=== PATIENT | female | born 1960 ===

== ENCOUNTER 2022-12-26 16:40 | Emergency (ER) | payer MEDICARE, SELFPAY ==
[2022-12-26 16:46] VITALS: BP 179/87; PULSE 86; RESP 16; TEMP 37.1; O2SAT 98; BMI 29.2
--- NOTE | 2022-12-26 17:01 | DI.RAD.S_ITS ---
PROCEDURE: XR FOOT RT MIN 3V INDICATIONS: fall, LAC posterior 5th digit, swelling anterior foot TECHNIQUE: 3 views of the foot were acquired. COMPARISON: None. FINDINGS: Bones: No fractures or dislocations. No suspicious bony lesions. Dorsal beaking of the tarsal metatarsal joints. Mild osteoarthritic changes of the 1st metatarsophalangeal joint. Accessory os peroneus. Soft tissues: No tibiotalar joint effusion. Achilles tendon appears normal. Soft tissue swelling over the forefoot. IMPRESSION: No displaced fracture identified. Multifocal osteoarthritic changes. No retained radiopaque foreign bodies. Dictated by: Blayne Hi M.D. on 12/26/2022 at 16:26 Approved by: Blayne Hi M.D. on 12/26/2022 at 16:29
--- NOTE | 2022-12-26 18:11 | ED.FALL ---
HPI - Fall General Chief Complaint: Fall Stated Complaint: Fall Time Seen by Provider: 12/26/22 18:05 History of Present Illness HPI Narrative: 62-year-old female occasional smoker presents with family in the chief complaint of an accidental injury to her right foot. She states that she was walking in the middle of the night and accidentally slammed her foot and suffered an injury. She had presented initially to the walk-in clinic and was referred here due to the possibility of an open fracture given the obvious laceration between her right 4th and 5th toes. She reports her tetanus is up-to-date. She does not have much in the way of pain due to a known neuropathy. Related Data Home Medications Medication Instructions Recorded Confirmed allopurinol 300 mg tablet 300 mg PO DAILY 12/26/22 12/26/22 ferrous gluconate 324 mg (37.5 mg 324 mg PO DAILY 12/26/22 12/26/22 iron) tablet furosemide 40 mg tablet 40 mg PO DAILY 12/26/22 12/26/22 gabapentin 600 mg tablet 600 mg PO DAILY 12/26/22 12/26/22 levothyroxine 175 mcg tablet 175 mcg PO DAILY 12/26/22 12/26/22 (Levo-T) propranolol 20 mg tablet 10 mg PO BID 12/26/22 12/26/22 thiamine HCl (vitamin B1) 100 mg 100 mg PO DAILY 12/26/22 12/26/22 tablet (Vitamin B-1) Previous Rx's Medication Instructions Recorded cephalexin 500 mg capsule 500 mg PO Q6H 7 days #28 caps 12/26/22 Allergies Allergy/AdvReac Type Severity Reaction Status Date / Time No Known Drug Allergies Allergy Unverified 12/26/22 16:08 Review of Systems Review of Systems Narrative: GENERAL: Denies chills, fatigue, malaise, fever, sweats. HEENT: Denies sinus pain, ear pain, sore throat, difficulty swallowing, dizziness. RESPIRATORY: Denies dyspnea, cough, wheezing, hemoptysis, sputum. CARDIOVASCULAR: Denies chest pain, palpitations, orthopnea, edema, GASTROINTESTINAL: Denies nausea, vomiting, abdominal pain, diarrhea, constipation, melena. : Denies dysuria, frequency, incontinence, hematuria, urinary retention. MUSCULOSKELETAL: See HPI SKIN: Denies rash, skin lesions, or other NEUROLOGIC: Denies weakness, headache, numbness, change in speech, confusion, seizures, incoordination. PSYCHIATRIC: No concerning psychosocial issues. 12 point review of systems is negative except for those stated above Patient History Social History Smoking Status: Current some day smoker Smoking Status: Current some day smoker Exam Narrative Exam Narrative: GEN: AOx3 and in mild distress EYES: Pupils are equal, round, and reactive to light and accommodation. Extraoccular muscles are intact bilaterally. There is no subconjunctival hemorrhage or exudate. CHEST: Lungs are clear to auscultation bilaterally and free of wheezes, rales, or rhonchi. Heart rate is regular rhythm, there are no murmurs, clicks, rubs, or gallops. There is no chest wall tenderness. ABD: Abdomen is soft and nontender. There is no guarding or rebound. Bowel sounds are normal in all 4 quadrants. There is no mass or organomegaly. EXT: 4 cm laceration on the underside right 5th toe wrapping underneath plantar surface and into the 4th and 5th toe webspace, no evidence of foreign body, no bony abnormality and no tendinous involvement SKIN: Warm, pink, and dry. No erythema or rash Initial Vital Signs Initial Vital Signs: Vital Signs Temperature 98.7 F 12/26/22 16:46 Pulse Rate 86 12/26/22 16:46 Respiratory Rate 16 12/26/22 16:46 Blood Pressure 179/87 H 12/26/22 16:46 Pulse Oximetry 98 12/26/22 16:46 Oxygen Delivery Method Room Air 12/26/22 16:46 Procedures Laceration Repair Laceration 1: Site: lower extremity Side (If applicable): right Size (cm): 4 Description: irregular Depth: simple, single layer Local Anesthetic: lidocaine 2% Amount of anesthesia used (mL): 4 Pre-repair: wound explored, irrigated extensively and cleansed with chlorhexadine Skin layer closed with: nylon Skin layer suture size: 5-0 Number of sutures: 6 Technique: simple, interrupted Course Orders Ordered: Discontinued Medications Lidocaine HCl (Lidocaine 2% Inj Sdv 5ml) 5 ml TOP NOW ONE Stop: 12/26/22 19:56 Last Admin: 12/26/22 20:05 Dose: Not Given Documented By: SPF Lidocaine HCl (Lidocaine 2% Inj Sdv 5ml) 5 ml INJ INTRA-OP ONE Stop: 12/26/22 19:58 Last Admin: 12/26/22 20:05 Dose: 5 ml Documented By: ANDRÉS Vital Signs Vital signs: Vital Signs - 8 hr 12/26/22 16:46 Temperature 98.7 F Pulse Rate 86 Respiratory Rate 16 Blood Pressure 179/87 H Pulse Oximetry 98 Oxygen Delivery Method Room Air MDM - Fall MDM Narrative Medical decision making narrative: 62[] year old patient presents with right foot injury Multiple etiologies for patient's symptoms considered including, but not limited to: [Laceration versus fracture versus other] Prior Charts reviewed in our EMR Primary Historian: patient Imaging reviewed: No fracture or dislocation noted on foot x-ray Patient's symptoms improved over duration of stay with above-stated therapies. Wound cleaned, sterilized, suture, no evidence of bony involvement, no foreign body, no evidence of tendon involvement. Tetanus is up-to-date. Patient put on antibiotics, questions answered to her apparent satisfaction Findings and discharge diagnosis discussed with patient/family followed by verbalization of understanding Return precautions discussed with patient/family whom verbalize understanding of diagnosis and plan Discharge Plan Departure Patient Disposition: Home Clinical Impression: Laceration of foot Instructions: DI for Laceration Repair Activity Restrictions/Additional Instructions: *You have been diagnosed with [right foot laceration. As we discussed your history and physical exam are reassuring in the x-ray shows no evidence of fracture. 6 stitches placed] *What to do: *Please continue to take your regular medications as directed. [x ] New medication prescriptions sent to your pharmacy: [ [facility]] [ ] New medication written as a paper prescription [ ] No new medications given * Please keep the wound clean and dry to the best of your ability. Please monitor for signs of infection such as redness to the skin or increasing pain. Have the sutures/jarek removed by your doctor in about 7 days. If you are unable to get into your doctor, we would be happy to remove the sutures/ajrek in that same timeframe. *Return to Emergency Department if you should have any new, worsening or concerning symptoms, such as [fever greater than 101 F, shaking chills, worsening pain, persistent vomiting or other bothersome symptoms] Prescriptions: New cephalexin 500 mg capsule 500 mg PO Q6H 7 Days Qty: 28 0RF No Action allopurinol 300 mg tablet 300 mg PO DAILY ferrous gluconate 324 mg (37.5 mg iron) tablet 324 mg PO DAILY furosemide 40 mg tablet 40 mg PO DAILY gabapentin 600 mg tablet 600 mg PO DAILY levothyroxine [Levo-T] 175 mcg tablet 175 mcg PO DAILY propranolol 20 mg tablet 10 mg PO BID thiamine HCl (vitamin B1) [Vitamin B-1] 100 mg tablet 100 mg PO DAILY Referrals: Miscellaneous,Doctor, MD [Primary Care Provider] - Stand Alone Forms: Patient Portal/API
[2022-12-26 19:19] VITALS: BP 141/96; PULSE 94; RESP 17; O2SAT 95
[2022-12-26 19:59] VITALS: BP 179/95; PULSE 90; RESP 18; O2SAT 97
--- NOTE | 2022-12-26 20:02 | PC.NURSE ---
Patient tolerated procedure well while laying prone in bed. Foot is wrapped with gauze and gauz sleeve wrap.
[2022-12-26] MEDS: LIDOCAINE 2% INJ SDV 5ML 5 ML INJ (20:05)
== END 2022-12-26 20:06 | disposition home or self-care (01) ==
PROVIDERS: Emergency Provider Emergency Medicine
DX: S91.114A Laceration without foreign body of right lesser toe(s) without damage to nail, initial encounter (principal); W22.8XXA Striking against or struck by other objects, initial encounter
CPT/HCPCS: 12002; 73630; 99283

== ENCOUNTER 2022-12-30 15:50 | Emergency (ER) | payer MEDICARE, SELFPAY ==
[2022-12-30 15:53] VITALS: BP 134/88; PULSE 84; RESP 18; TEMP 36.7; O2SAT 97; BMI 29.2
--- NOTE | 2022-12-30 17:36 | DI.RAD.S_ITS ---
PROCEDURE: XR TOE RT MIN 2V INDICATIONS: 5th toe injury TECHNIQUE: 3 views of the 5th toe(s) acquired. COMPARISON: None. FINDINGS: Bones: Mildly displaced, extra-articular fracture of the proximal 5th phalanx metadiaphysis. Soft tissues: No suspicious soft tissue densities. IMPRESSION: Mildly displaced, extra-articular fracture of the 5th proximal phalanx. Dictated by: Jignesh Devlin M.D. on 12/30/2022 at 18:14 Approved by: Jignesh Devlin M.D. on 12/30/2022 at 18:15
--- NOTE | 2022-12-30 18:34 | ED_ITS ---
HPI - Wound/Laceration <AMADOR Scott - Last Filed: 12/30/22 19:04> General Chief Complaint: Wound/Laceration Stated Complaint: Cyst on foot Time Seen by Provider: 12/30/22 17:36 Source: patient Mode of arrival: Wheelchair History of Present Illness HPI narrative: This is a 62-year-old female who returns to the emergency department after she was seen after stubbing her toe on 12/26/2022, and complains of a very large blister to the top of her foot. She states that her pain is still there to her 5th toe and has not gotten any better, she complains of swelling to her foot, denies ankle pain, denies any swelling over lower leg but states that her foot is very swollen is painful to walk. Patient denies history of diabetes, denies history of MRSA. States that she was prescribed cephalexin and has been taking it this week. She states she has a history of kidney disease. Related Data Home Medications Medication Instructions Recorded Confirmed allopurinol 300 mg tablet 300 mg PO DAILY 12/26/22 12/26/22 ferrous gluconate 324 mg (37.5 mg 324 mg PO DAILY 12/26/22 12/26/22 iron) tablet furosemide 40 mg tablet 40 mg PO DAILY 12/26/22 12/26/22 gabapentin 600 mg tablet 600 mg PO DAILY 12/26/22 12/26/22 levothyroxine 175 mcg tablet 175 mcg PO DAILY 12/26/22 12/26/22 (Levo-T) propranolol 20 mg tablet 10 mg PO BID 12/26/22 12/26/22 thiamine HCl (vitamin B1) 100 mg 100 mg PO DAILY 12/26/22 12/26/22 tablet (Vitamin B-1) Previous Rx's Medication Instructions Recorded cephalexin 500 mg capsule 500 mg PO Q6H 7 days #28 caps 12/26/22 diclofenac sodium 1 % topical gel 4 g topical QID #100 grams 12/30/22 hydrocodone 5 mg-acetaminophen 325 1 tab PO Q6H PRN pain #7 tabs 12/30/22 mg tablet Allergies Allergy/AdvReac Type Severity Reaction Status Date / Time No Known Drug Allergies Allergy Verified 12/30/22 15:58 Review of Systems <AMADOR Scott - Last Filed: 12/30/22 19:04> Review of Systems ROS Unobtainable: All systems reviewed & are unremarkable except as noted in HPI and below Patient History <AMADOR Scott - Last Filed: 12/30/22 19:04> Social History Smoking Status: Current every day smoker Smoking Status: Current every day smoker alcohol intake frequency: 0-2 drinks per day Substance Use Type: does not use Exam <AMADOR Scott - Last Filed: 12/30/22 19:04> Narrative Exam Narrative: MSK: Dorsum of right foot has a large bulla 1st blister concerning for fracture blister, x-ray was ordered of the right foot/toe over the 5th toe. Patient has pitting edema primarily in forefoot and midfoot, a mild amount the heel was and no ascending edema or calf tenderness to palpation. No surrounding erythema, blister was drained with a 20 gauge needle for 20 mL of clear yellow fluid. Wound base was not erythematous, Xeroform was applied and patient was placed in an orthopedic shoe. Fifth toe has a brisk cap refill although it is edematous, she has tenderness to palpation over the proximal aspect. There is plantar ecchymosis. Initial Vital Signs Initial Vital Signs: Vital Signs Temperature 98.1 F 12/30/22 15:53 Pulse Rate 84 12/30/22 15:53 Respiratory Rate 18 12/30/22 15:53 Blood Pressure 134/88 12/30/22 15:53 Pulse Oximetry 97 12/30/22 15:53 Oxygen Delivery Method Room Air 12/30/22 15:53 <Al Matos DO - Last Filed: 12/30/22 22:43> Initial Vital Signs Initial Vital Signs: Vital Signs Temperature 98.1 F 12/30/22 15:53 Pulse Rate 84 12/30/22 15:53 Respiratory Rate 18 12/30/22 15:53 Blood Pressure 134/88 12/30/22 15:53 Pulse Oximetry 97 12/30/22 15:53 Oxygen Delivery Method Room Air 12/30/22 15:53 Procedures <AMADOR Scott - Last Filed: 12/30/22 19:04> Orthopedic Splinting/Casting Injury #1: Side: right Lower Extremity Injury Location: foot and toe Lower Extremity Immobilizer: post-op shoe Post splinting neuro exam: intact Post splinting vascular exam: intact Placed by: Nursing Course <AMADOR Scott - Last Filed: 12/30/22 19:04> Orders Ordered: ED Orders 12/30/22 17:36 XR toe RT min 2V Stat Vital Signs Vital signs: Vital Signs - 8 hr 12/30/22 15:53 12/30/22 18:47 Temperature 98.1 F Pulse Rate 84 85 Respiratory Rate 18 16 Blood Pressure 134/88 193/90 H Pulse Oximetry 97 100 Oxygen Delivery Method Room Air Room Air <Al Matos DO - Last Filed: 12/30/22 22:43> Orders Ordered: ED Orders 12/30/22 17:36 XR toe RT min 2V Stat Vital Signs Vital signs: Vital Signs - 8 hr 12/30/22 15:53 12/30/22 18:47 Temperature 98.1 F Pulse Rate 84 85 Respiratory Rate 18 16 Blood Pressure 134/88 193/90 H Pulse Oximetry 97 100 Oxygen Delivery Method Room Air Room Air MDM - Wound/Laceration <AMADOR Scott - Last Filed: 12/30/22 19:04> Imaging Data Extremity x-ray #1: Radiologist's Impression: Close Toe X-Ray (Signed) Jignesh Devlin - 12/30/22 Launch?[place] [address] XRay Report Signed Patient: Padmaja Zuniga MR#: [id number] : 1960 Acct:[id number] Age/Sex: 62 / F Date of Service: 12/30/22 Loc: ED Accession Number: [id number] ?? Procedure: XR toe RT min 2V Ordering Provider: Digna Potter PROCEDURE:? XR TOE RT MIN 2V ? INDICATIONS:? 5th toe injury ? TECHNIQUE:? 3 views of the 5th toe(s) acquired.? ? COMPARISON:? None. ? FINDINGS:? ? Bones:? Mildly displaced, extra-articular fracture of the proximal 5th phalanx metadiaphysis. ? Soft tissues:? No suspicious soft tissue densities.? ? IMPRESSION:? Mildly displaced, extra-articular fracture of the 5th proximal phalanx. ? ? Dictated by: Jignesh Devlin M.D. on 12/30/2022 at 18:14 ? ? Approved by: Jignesh Devlin M.D. on 12/30/2022 at 18:15 ? MDM Narrative Medical decision making narrative: Chief Complaint: Toe pain, blister Multiple etiologies for patient's complaint considered including, but not limited to: Fracture blister, acute fracture, dependent edema, cellulitis, soft tissue necrotizing infection, bullae versus blister I have independently reviewed the patient's vital signs and nursing notes as well as prior records if available. Plan: X-ray, patient denies pain medication, drain bullae, orthopedic shoe, sterile dressing Patient is already taking cephalexin at this time, discussed occult fractures and fracture blisters and in fact, her right toe x-ray today shows a proximal phalanx fracture of the 5th toe, it is visible on the anterior view from 12/26/2022 but not in the oblique view, and today is best seen in the oblique view but is displaced now compared to previously.. Patient was splinted with orthopedic shoe, she tolerated this well, she was given pain medication to use as needed, a Xeroform dressing was applied over fracture blister and I encouraged him to follow-up with [facility] for recheck, start elevating her foot frequently and come back if she has ascending edema, worsening pain, or fever and chills. Patient will follow-up with prolonged Orthopedics. Social considerations that may affect disposition: none Questions are addressed and there is agreement with the plan and for follow-up with [facility] I consulted with the ED attending physician Dr. Matos as needed for higher level of care considerations and they were available for discussion and recommendations regarding plan of care and diagnostic testing. Patient is appropriate for outpatient management. Discharge Plan Departure Patient Disposition: Home Clinical Impression: Blister over site of fracture of bone Fracture, phalanx, foot Qualifiers: Encounter type: initial encounter Toe: lesser toe Fracture type: closed Phalanx: proximal Fracture alignment: displaced Laterality: right Qualified Code(s): S92.511A - Displaced fracture of proximal phalanx of right lesser toe(s), initial encounter for closed fracture Instructions: Toe Fracture Activity Restrictions/Additional Instructions: *You have been diagnosed with a fracture blister and proximal phalanx fracture 5th toe on the right foot. Fracture blisters occur in sites that have a lot of swelling when the swelling does not have anymore room to go. They often develop early, within the 1st 1-3 days post injury and have clear to yellowish colored fluid. It is okay to antibiotic ointment, please try trim off the or peeling tissue so that it does get torn and cause injury. Please use the walk- in shoe at all times, you may reduce the cephalexin dosing down by 1 tab daily and take for only 5 days instead of 7. Use topical antibiotic ointment after the blister starts to heal. Please elevate this frequently, the problem is that it is so swollen there is no more room for the swelling to go. Okay to continue taking gabapentin as needed or per your regular schedule. I have given you some pain pills to use as needed, use diclofenac gel around the swelling on your foot and your ankle, avoid the wound. Use Tylenol, ibuprofen can be helpful and elevation is hauser. Use a walking shoe and schedule follow-up with [facility] for follow-up. If you develop worsening swelling or redness or streaking up your leg, please come back to the emergency department for worsening. *What to do: *Please continue to take your regular medications as directed. [x ] New medication prescriptions sent to your pharmacy: [[facility] ] [ ] New medication written as a paper prescription [ ] No new medications given *Please call and schedule follow up with your primary care provider in 2-3 days, at least for an update. Let them know you were seen in the Emergency Department for the above problem. We will electronically transmit a record of today's note if your PCP or specialist is in our system. *If you do not have a primary care provider please contact [phone] to establish care with one of the [facility] primary care providers. *Return to the Emergency Department for worsening symptoms, inability to keep liquids down, fever greater than 101F, chills, or other concerning symptom. Prescriptions: New hydrocodone-acetaminophen 5-325 mg tablet 1 tab PO Q6H PRN (Reason: pain) Qty: 7 0RF diclofenac sodium 1 % gel 4 g topical QID Qty: 100 0RF Rx Instructions: Avoid wounds, apply to area of swelling and pain up to 4 times a day No Action allopurinol 300 mg tablet 300 mg PO DAILY ferrous gluconate 324 mg (37.5 mg iron) tablet 324 mg PO DAILY furosemide 40 mg tablet 40 mg PO DAILY gabapentin 600 mg tablet 600 mg PO DAILY levothyroxine [Levo-T] 175 mcg tablet 175 mcg PO DAILY propranolol 20 mg tablet 10 mg PO BID thiamine HCl (vitamin B1) [Vitamin B-1] 100 mg tablet 100 mg PO DAILY cephalexin 500 mg capsule 500 mg PO Q6H 7 Days Qty: 28 0RF Referrals: [facility] [Provider Group] Stand Alone Forms: Patient Portal/API <Al Matos, DO - Last Filed: 12/30/22 22:43> [facility] Dr Matos Co-Sign Statement: I was available for consultation during this patient's emergency department visit. This chart is signed by myself for administrative purposes only. I did not have direct contact with this patient during this visit. They were seen independently by the APC.
[2022-12-30 18:47] VITALS: BP 193/90; PULSE 85; RESP 16; O2SAT 100
== END 2022-12-30 18:56 | disposition home or self-care (01) ==
PROVIDERS: Emergency Provider Nurse Practitioner Critical Care Medicine
DX: S92.511A Displaced fracture of proximal phalanx of right lesser toe(s), initial encounter for closed fracture (principal); S90.821A Blister (nonthermal), right foot, initial encounter; X58.XXXA Exposure to other specified factors, initial encounter
CPT/HCPCS: 73660; 99281; 99283

== ENCOUNTER 2023-01-03 09:11 | Emergency (ER) | payer MEDICARE, SELFPAY ==
[2023-01-03] VITALS (17 sets, daily range): BP systolic 143–207; BP diastolic 75–97; PULSE 68–91; RESP 14–18; TEMP 36.5; O2SAT 87–100; BMI 29.2
--- NOTE | 2023-01-03 10:12 | DI.RAD.S_ITS ---
PROCEDURE: XR FOOT RT MIN 3V INDICATIONS: infected wound, h/o fx 5th toe w/ suture of wound. TECHNIQUE: 3 views of the foot were acquired. COMPARISON: [facility], CR, XR TOE RT MIN 2V, 12/30/2022, 17:45. [facility], CR, XR FOOT RT MIN 3V, 12/26/2022, 17:04. FINDINGS: Bones: Comminuted N comminuted base of proximal phalanx of small toe fracture again noted, subacute. Fracture involves the articular surface. No suspicious bony lesions. No obvious plain film evidence of osteomyelitis. Soft tissues: No tibiotalar joint effusion. Achilles tendon appears normal. IMPRESSION: 1. No obvious plain film evidence of osteomyelitis. 2. Subacute comminuted base of proximal phalanx of small toe fracture involving the articular surface. Dictated by: Trae Garcia M.D. on 01/03/2023 at 12:00 Approved by: Trae Garcia M.D. on 01/03/2023 at 12:03
[2023-01-03 10:25] LABS: Add Manual Diff / Slide Review NO; Basophils Absolute Auto 100 /uL (0-100); Basophils Percent Auto 0.9 % (0-2); Eosinophils Absolute Auto 200 /uL (0-450); Eosinophils Percent Auto 3.9 % (2-4); Hematocrit 39.4 % (36-46); Hemoglobin 13.4 g/dL (12.0-16.0); Lymphocytes Absolute Auto 1000 /uL (1100-4500); Lymphocytes Percent Auto 16.3 % (25-40); Mean Corpuscular Hemoglobin 32.3 PG (26-34); Monocytes Absolute Auto 200 /uL (0-900); Monocytes Percent Auto 3.5 % (3-14); Neutrophils Absolute Auto 4400 /uL (1500-7000); Neutrophils Percent Auto 75.4 % (50-75); Platelet Count 216 X10^3/uL (150-400); Red Blood Cell Count 4.15 X10^6/uL (4.0-5.2); Red Cell Distribution Width 17.1 % (11.6-14.8); White Blood Cell Count 5.8 X10^3/uL (4.5-11.0)
[2023-01-03 10:35] LABS: INR 0.9 (0.9-1.3); Prothrombin Time 10.6 SECONDS (10.1-12.7)
[2023-01-03 10:38] LABS: PTT Partial Thromboplastin Tim 32 SECONDS (26-36)
[2023-01-03 10:40] LABS: Lactate (Lactic Acid) 1.1 mmol/L (0.7-2.1)
[2023-01-03 10:42] LABS: Alanine Aminotransferase 22 IU/L (<35); Albumin 3.9 g/dL (3.5-5.0); Albumin Globulin Ratio 1.1 (1.0-2.8); Alkaline Phosphatase 98 U/L (38-126); Aspartate Aminotransferase 37 IU/L (14-36); BUN Creatinine Ratio 21.3 (6-22); Bilirubin Total 0.6 mg/dL (0.2-1.3); Blood Urea Nitrogen 53 mg/dL (7-17); Carbon Dioxide 29 mmol/L (22-32); Chloride 101 mmol/L (98-107); Estimated Glomerular Filt Rate 21 mL/min (>60); Globulin 3.6 g/dL (1.7-4.1); Glucose 106 mg/dL (80-110); HEMOLYSIS 15 (0-50); Lipase 560 U/L (23-300); Potassium 3.5 mmol/L (3.4-5.1); Sodium 135 mmol/L (137-145); Total Protein 7.5 g/dL (6.3-8.2)
--- NOTE | 2023-01-03 10:52 | ED.WOUNDLAC ---
HPI - Wound/Laceration General Chief Complaint: Wound/Laceration Stated Complaint: R small toe fracture t-8 / t-2 edema Time Seen by Provider: 01/03/23 10:52 History of Present Illness HPI narrative: Patient is a 62-year-old female history of diabetes with neuropathy presenting today for the 3rd time this week. She initially was seen on December 26 for a small laceration after she stubbed her toe. X-ray initially was negative. However she developed a large blister and was seen again on December 30. It was x-rayed at that time she was found to have a small displaced fracture. Blister was drained his patient in orthopedic shoe and directed to follow-up. She reports that the blister has gotten worse. She denies any fever. She is neuropathy and really denies any pain. She is noted to have some more swelling in that leg but she reports she is getting up and walking around. Related Data Home Medications Medication Instructions Recorded Confirmed allopurinol 300 mg tablet 300 mg PO DAILY 12/26/22 12/26/22 ferrous gluconate 324 mg (37.5 mg 324 mg PO DAILY 12/26/22 12/26/22 iron) tablet furosemide 40 mg tablet 40 mg PO DAILY 12/26/22 12/26/22 gabapentin 600 mg tablet 600 mg PO DAILY 12/26/22 12/26/22 levothyroxine 175 mcg tablet 175 mcg PO DAILY 12/26/22 12/26/22 (Levo-T) propranolol 20 mg tablet 10 mg PO BID 12/26/22 12/26/22 thiamine HCl (vitamin B1) 100 mg 100 mg PO DAILY 12/26/22 12/26/22 tablet (Vitamin B-1) Previous Rx's Medication Instructions Recorded diclofenac sodium 1 % topical gel 4 g topical QID #100 grams 12/30/22 hydrocodone 5 mg-acetaminophen 325 1 tab PO Q6H PRN pain #7 tabs 12/30/22 mg tablet silver sulfadiazine 1 % topical 1 applic topical BID #20 grams 01/03/23 cream (SSD) Allergies Allergy/AdvReac Type Severity Reaction Status Date / Time No Known Drug Allergies Allergy Verified 12/30/22 15:58 Review of Systems Review of Systems ROS Unobtainable: All systems reviewed & are unremarkable except as noted in HPI and below Patient History Social History (Reviewed 01/03/23 @ 18:45 by WAGNER Eckert Smoking Status: Current every day smoker Smoking Status: Current every day smoker tobacco type: cigarettes alcohol intake frequency: 0-2 drinks per day Alcohol type: wine Substance Use Type: does not use Exam Initial Vital Signs Initial Vital Signs: Vital Signs Temperature 97.7 F 01/03/23 09:15 Pulse Rate 68 01/03/23 09:15 Respiratory Rate 16 01/03/23 09:15 Blood Pressure 150/79 H 01/03/23 09:15 Pulse Oximetry 98 01/03/23 09:15 Oxygen Delivery Method Room Air 01/03/23 09:15 GENERAL: Alert 62-year-old female and in no acute distress. HEENT: Head atraumatic,EOMI, pupils reactive, face symmetric, moist mucous membranes CARDIOVASCULAR: Regular rate and rhythm without murmurs, rubs or gallops. RESPIRATORY: Slight wheezing no respiratory does dress no tachypnea ABDOMEN: Soft, nontender. Normoactive bowel sounds all 4 quadrants. No guarding or rebound. EXTREMITIES: Normal range of motion, no clubbing or edema. Neurovascularly intact NEUROLOGICAL: Alert and oriented x4 SKIN: Right foot dorsal blister no surrounding erythema no streaking in the blister has been drained but skin remains Course Orders Ordered: ED Orders 01/03/23 10:12 XR foot RT min 3V Stat 01/03/23 10:15 C-Reactive Protein Quant Stat Complete Blood Count AUTO DIFF Stat Comprehensive Metabolic Panel Stat Erythrocyte Sedimentation Rate Stat Lactate (Lactic Acid) Stat Lipase Stat PTT Partial Thromboplastin Mateusz Stat Procalcitonin Stat Prothrombin Time INR Stat 01/03/23 11:00 Chest [XR chest 1V] Stat 01/03/23 11:18 US periph venous low extrem rt Stat Discontinued Medications Albuterol/Ipratropium (Albuterol/Ipratropium 3 Ml Ampul) 3 ml INH NOW ONE Stop: 01/03/23 13:21 Last Admin: 01/03/23 13:22 Dose: 3 ml Documented By: JOSE Ondansetron HCl (Ondansetron 4 Mg/2 Ml Inj) 4 mg IV NOW PRN PRN Reason: Nausea And Vomiting Ondansetron HCl (Ondansetron 4 Mg Odt) 4 mg SL NOW PRN PRN Reason: Nausea And Vomiting Vital Signs Vital signs: Vital Signs - 8 hr 01/03/23 11:00 01/03/23 11:00 01/03/23 11:40 Pulse Rate 81 83 Respiratory Rate 14 18 Blood Pressure 189/96 H 186/83 H Pulse Oximetry 95 97 Oxygen Delivery Method Room Air Room Air Oxygen Flow Rate Fraction of Inspired Oxygen 01/03/23 13:23 01/03/23 11:38 01/03/23 11:39 Pulse Rate 87 83 Respiratory Rate 18 Blood Pressure Pulse Oximetry 97 100 97 Oxygen Delivery Method Room Air Oxygen Flow Rate 0 Fraction of Inspired Oxygen 01/03/23 11:39 01/03/23 12:02 01/03/23 12:30 Pulse Rate 85 Respiratory Rate Blood Pressure 186/83 H 170/82 H Pulse Oximetry 95 Oxygen Delivery Method Oxygen Flow Rate Fraction of Inspired Oxygen 01/03/23 12:31 01/03/23 12:31 01/03/23 13:00 Pulse Rate 87 85 Respiratory Rate Blood Pressure 176/97 H Pulse Oximetry 96 94 Oxygen Delivery Method Oxygen Flow Rate Fraction of Inspired Oxygen 01/03/23 13:01 01/03/23 13:01 01/03/23 13:27 Pulse Rate 86 Respiratory Rate Blood Pressure 143/75 H 152/97 H Pulse Oximetry 95 Oxygen Delivery Method Oxygen Flow Rate Fraction of Inspired Oxygen 01/03/23 13:27 01/03/23 13:30 Pulse Rate 91 H 89 Respiratory Rate Blood Pressure Pulse Oximetry 96 99 Oxygen Delivery Method Oxygen Flow Rate Fraction of Inspired Oxygen MDM - Wound/Laceration Lab Data 01/03/23 10:15 01/03/23 10:15 Labs: Lab Results 01/03/23 01/03/23 01/03/23 Range/Units 10:15 10:15 10:15 WBC 5.8 (4.5-11.0) X10^3/uL RBC 4.15 (4.0-5.2) X10^6/uL Hgb 13.4 (12.0-16.0) g/dL Hct 39.4 (36-46) % MCV 95.0 (80-100) fL MCH 32.3 (26-34) PG MCHC 34.0 (30-36) % RDW 17.1 H (11.6-14.8) % Plt Count 216 (150-400) X10^3/uL Neut % (Auto) 75.4 H (50-75) % Lymph % (Auto) 16.3 L (25-40) % [place] % (Auto) 3.5 (3-14) % Eos % (Auto) 3.9 (2-4) % Baso % (Auto) 0.9 (0-2) % Neut # (Auto) 4400 (1158-3274) /uL Lymph # (Auto) 1000 L (9543-9659) /uL [place] # (Auto) 200 (0-900) /uL Eos # (Auto) 200 (0-450) /uL Baso # (Auto) 100 (0-100) /uL ESR (0-20) MM/HR PT 10.6 (10.1-12.7) SECONDS INR 0.9 (0.9-1.3) APTT 32 (26-36) SECONDS Sodium 135 L (137-145) mmol/L Potassium 3.5 (3.4-5.1) mmol/L Chloride 101 (98-107) mmol/L Carbon Dioxide 29 (22-32) mmol/L BUN 53 H (7-17) mg/dL Creatinine 2.49 H (0.52-1.04) mg/dL Estimated GFR 21 L (>60) mL/min BUN/Creatinine Ratio 21.3 (6-22) Glucose 106 (80-110) mg/dL Lactate (0.7-2.1) mmol/L Calcium 9.0 (8.4-10.2) mg/dL Total Bilirubin 0.6 (0.2-1.3) mg/dL AST 37 H (14-36) IU/L ALT 22 (<35) IU/L Alkaline Phosphatase 98 (38-126) U/L C-Reactive Protein (<1.0) mg/dL Total Protein 7.5 (6.3-8.2) g/dL Albumin 3.9 (3.5-5.0) g/dL Globulin 3.6 (1.7-4.1) g/dL Albumin/Globulin Ratio 1.1 (1.0-2.8) Lipase 560 H (23-300) U/L Procalcitonin 0.10 (<0.5) ng/mL 01/03/23 01/03/23 01/03/23 Range/Units 10:15 10:15 10:15 WBC (4.5-11.0) X10^3/uL RBC (4.0-5.2) X10^6/uL Hgb (12.0-16.0) g/dL Hct (36-46) % MCV (80-100) fL MCH (26-34) PG MCHC (30-36) % RDW (11.6-14.8) % Plt Count (150-400) X10^3/uL Neut % (Auto) (50-75) % Lymph % (Auto) (25-40) % [place] % (Auto) (3-14) % Eos % (Auto) (2-4) % Baso % (Auto) (0-2) % Neut # (Auto) (9809-3763) /uL Lymph # (Auto) (1308-6009) /uL [place] # (Auto) (0-900) /uL Eos # (Auto) (0-450) /uL Baso # (Auto) (0-100) /uL ESR 67 H (0-20) MM/HR PT (10.1-12.7) SECONDS INR (0.9-1.3) APTT (26-36) SECONDS Sodium (137-145) mmol/L Potassium (3.4-5.1) mmol/L Chloride (98-107) mmol/L Carbon Dioxide (22-32) mmol/L BUN (7-17) mg/dL Creatinine (0.52-1.04) mg/dL Estimated GFR (>60) mL/min BUN/Creatinine Ratio (6-22) Glucose (80-110) mg/dL Lactate 1.1 (0.7-2.1) mmol/L Calcium (8.4-10.2) mg/dL Total Bilirubin (0.2-1.3) mg/dL AST (14-36) IU/L ALT (<35) IU/L Alkaline Phosphatase (38-126) U/L C-Reactive Protein 2.0 H (<1.0) mg/dL Total Protein (6.3-8.2) g/dL Albumin (3.5-5.0) g/dL Globulin (1.7-4.1) g/dL Albumin/Globulin Ratio (1.0-2.8) Lipase (23-300) U/L Procalcitonin (<0.5) ng/mL Imaging Data Chest x-ray: Radiologist's Impression: PROCEDURE:? XR CHEST 1V ? INDICATIONS:? short of breath ? TECHNIQUE:? One view of the chest was acquired.? ? COMPARISON:? None. ? FINDINGS:? ? Surgical changes and devices:? None.? ? Lungs and pleura:? Mildly coarse interstitial markings, right greater than left.? No dense consolidation, effusion, or pneumothorax. ? Mediastinum:? Two right perihilar opacities may be pulmonary artery prominence versus adenopathy.? The heart is mildly enlarged.? Aortic contour is normal.? No central venous congestion. ? Bones and chest wall:? No suspicious bony lesions.? Overlying soft tissues appear unremarkable.? ? IMPRESSION:? ? 1. Diffuse interstitial thickening, right greater than left may be infectious, inflammatory, or less likely edema. ? 2. Right perihilar opacities with differential diagnosis of prominent pulmonary vasculature versus adenopathy. ? 3. Cardiomegaly.? ? ? Dictated by: Angelica Adams M.D. on 01/03/2023 at 12:01 ? ? Extremity x-ray #1: Radiologist's Impression: PROCEDURE:? XR FOOT RT MIN 3V ? INDICATIONS:? infected wound, h/o fx 5th toe w/ suture of wound. ? TECHNIQUE:? 3 views of the foot were acquired.? ? COMPARISON:? [facility], CR, XR TOE RT MIN 2V, 12/30/2022, 17:45.? [facility], CR, XR FOOT RT MIN 3V, 12/26/2022, 17:04. ? FINDINGS:? ? Bones:? Comminuted N comminuted base of proximal phalanx of small toe fracture again noted, subacute.? Fracture involves the articular surface.? No suspicious bony lesions.? No obvious plain film evidence of osteomyelitis.? ? Soft tissues:? No tibiotalar joint effusion.? Achilles tendon appears normal.? ? IMPRESSION:? ? 1. No obvious plain film evidence of osteomyelitis. ? 2. Subacute comminuted base of proximal phalanx of small toe fracture involving the articular surface. ? ? Dictated by: Trae Garcia M.D. on 01/03/2023 at 12:00 ? ? [facility] Narrative Medical decision making narrative: Patient is 62-year-old female history of chronic kidney disease, recent right foot fracture with fracture blister presenting with worsening blister. No fever she is having some shortness of breath but no cough or chest pain. Sutures removed from her foot x-ray reveals still present fracture but no osteomyelitis. Elevated ESR at 67, and CRP 2.0 but no elevated WBC. Briefly consulted you with orthopedics in regards to possible fracture blister and OR at this time he reports no OR is indicated. At this time supportive care wound referral and outpatient follow-up. Referral to wound care has been made. Discharge Plan Departure Patient Disposition: Home Clinical Impression: Fracture blister, Encounter for removal of sutures Instructions: Toe Fracture Activity Restrictions/Additional Instructions: *You have been diagnosed with you have a fracture blister and toe fracture *What to do: Continue wearing orthopedic shoe. Apply cream twice a day. Keep bandage on. *Continue to take medications as directed Silver Sulfadiazine twice daily to foot.--> Sent to [facility] *Follow up with your primary care provider in 2-3 days or call [phone] Referral to wound care is made Please follow-up with your PCP in regards to her chronic kidney disease. *Return to ER if you should have increasing redness pain increasing redness pain fever swelling any new, worsening or concerning symptoms Prescriptions: New silver sulfadiazine [SSD] 1 % cream 1 applic topical BID Qty: 20 0RF Rx Instructions: apply a 1.5 mm thickness No Action allopurinol 300 mg tablet 300 mg PO DAILY ferrous gluconate 324 mg (37.5 mg iron) tablet 324 mg PO DAILY furosemide 40 mg tablet 40 mg PO DAILY gabapentin 600 mg tablet 600 mg PO DAILY levothyroxine [Levo-T] 175 mcg tablet 175 mcg PO DAILY propranolol 20 mg tablet 10 mg PO BID thiamine HCl (vitamin B1) [Vitamin B-1] 100 mg tablet 100 mg PO DAILY hydrocodone-acetaminophen 5-325 mg tablet 1 tab PO Q6H PRN (Reason: pain) Qty: 7 0RF diclofenac sodium 1 % gel 4 g topical QID Qty: 100 0RF Rx Instructions: Avoid wounds, apply to area of swelling and pain up to 4 times a day Referrals: Miscellaneous,Doctor, MD [Primary Care Provider] - Stand Alone Forms: Patient Portal/API
[2023-01-03 11:00] LABS: Erythrocyte Sedimentation Rate 67 MM/HR (0-20)
--- NOTE | 2023-01-03 11:00 | DI.RAD.S_ITS ---
PROCEDURE: XR CHEST 1V INDICATIONS: short of breath TECHNIQUE: One view of the chest was acquired. COMPARISON: None. FINDINGS: Surgical changes and devices: None. Lungs and pleura: Mildly coarse interstitial markings, right greater than left. No dense consolidation, effusion, or pneumothorax. Mediastinum: Two right perihilar opacities may be pulmonary artery prominence versus adenopathy. The heart is mildly enlarged. Aortic contour is normal. No central venous congestion. Bones and chest wall: No suspicious bony lesions. Overlying soft tissues appear unremarkable. IMPRESSION: 1. Diffuse interstitial thickening, right greater than left may be infectious, inflammatory, or less likely edema. 2. Right perihilar opacities with differential diagnosis of prominent pulmonary vasculature versus adenopathy. 3. Cardiomegaly. Dictated by: Angelica Adams M.D. on 01/03/2023 at 12:01 Approved by: Angelica Adams M.D. on 01/03/2023 at 12:04
--- NOTE | 2023-01-03 11:18 | DI.US.S_ITS ---
PROCEDURE: US PERIPH VENOUS LOW EXTREM RT INDICATIONS: SWELLING TECHNIQUE: Real-time imaging, as well as color and pulse Doppler interrogation, were performed of the lower extremity deep veins from the inguinal ligament to the popliteal fossa, with documentation of the visualized calf veins. COMPARISON: None. FINDINGS: The common femoral, femoral, popliteal, and the visualized calf veins are normally compressible, and free of intraluminal thrombus. Color and pulse Doppler demonstrate normal phasic intraluminal flow. There is normal augmentation response to distal compression maneuver. Moderate soft tissue edema can be seen involving the right lower extremity from the mid thigh through the ankle. IMPRESSION: No findings of lower extremity deep venous thrombosis. Dictated by: Adán Russell M.D. on 01/03/2023 at 11:51 Approved by: Adán Russell M.D. on 01/03/2023 at 11:51
[2023-01-03] MEDS: ALBUTEROL/IPRATROPIUM 3 ML AMPUL INH (13:22)
== END 2023-01-03 15:06 | disposition home or self-care (01) ==
PROVIDERS: Emergency Provider Emergency Medicine
DX: S92.511A Displaced fracture of proximal phalanx of right lesser toe(s), initial encounter for closed fracture (principal); Z48.02 Encounter for removal of sutures
CPT/HCPCS: 36415; 71045; 73630; 80053; 83605; 83690; 84145; 85025; 85610; 85651; 85730; 86140; 87070; 87205; 93971; 94640; 99284

== ENCOUNTER → 2023-01-11 09:31 | Outpatient (CLI) | payer MEDICARE, SELFPAY | PROVIDERS: Referring Provider Emergency Medicine; Visit Provider Surgery | DX: S90.821A Blister (nonthermal), right foot, initial encounter (principal); S91.311A Laceration without foreign body, right foot, initial encounter; G57.83 Other specified mononeuropathies of bilateral lower limbs; R60.0 Localized edema | CPT/HCPCS: 11042; 11045; 99204; 99213 ==